=== PATIENT | male | born 1990 | race Hispanic/Latino ===

== ENCOUNTER 2018-02-04 14:56 | Emergency (ER) | payer MEDICAID ==
--- NOTE | 2018-02-04 15:06 | ED PDOC ---
Arrival/HPI - General Historian: Patient - History of Present Illness Narrative History of Present Illness (Text): 02/04/18 15:06 27 y/o male, no significant pmh, nkda, c/o left ear pain x 3 days. Pt. stated that he has left ear pain, associated with decrease hearing, no headache, no dizziness, admits discharge, no neck pain or night sweat, no rash, no numbness or tingling, no other medical or psychological complaints. <Henry Dietrich - Last Filed: 02/04/18 15:44> <Fernando Lee - Last Filed: 02/04/18 16:03> - General Time Seen by Provider: 02/04/18 15:05 Past Medical History - Provider Review Nursing Documentation Reviewed: Yes <Henry Dietrich - Last Filed: 02/04/18 15:44> Family/Social History - Physician Review Nursing Documentation Reviewed: Yes Family/Social History: Unknown Family HX <Henry Dietrich - Last Filed: 02/04/18 15:44> Allergies/Home Meds <Henry Dietrich - Last Filed: 02/04/18 15:44> <Fernando Lee - Last Filed: 02/04/18 16:03> Allergies/Adverse Reactions: Allergies clarithromycin [From Biaxin] Allergy (Verified 02/04/18 15:16) ANAPHYLAXIS Review of Systems - Review of Systems Constitutional: absent: Fatigue, Fevers Eyes: absent: Vision Changes ENT: Other (ear pain). absent: Hearing Changes Respiratory: absent: SOB, Cough Cardiovascular: absent: Chest Pain Gastrointestinal: absent: Abdominal Pain, Nausea, Vomiting Genitourinary Male: absent: Dysuria, Frequency Musculoskeletal: absent: Arthralgias, Back Pain Skin: absent: Rash, Pruritis Psychiatric: absent: Anxiety, Depression, Suicidal Ideation <Henry Dietrich - Last Filed: 02/04/18 15:44> Physical Exam Vital Signs Reviewed: Yes Temperature: Afebrile Blood Pressure: Hypertensive Pulse: Regular Respiratory Rate: Normal Appearance: Positive for: Well-Appearing, Non-Toxic, Comfortable Pain Distress: Moderate Mental Status: Positive for: Alert and Oriented X 3 - Systems Exam Head: Present: Atraumatic, Normocephalic Pupils: Present: PERRL Extroacular Muscles: Present: EOMI Conjunctiva: Present: Normal Ears: Present: Other (Ears: Lt. TM is erythematous with lt. auditory canal moderately swollen with erythematous, rt. TM pilar color and intact, rt. auditory canal non-erythematous, no mastoid tenderness, hearing grossly intact. ) Mouth: Present: Moist Mucous Membranes Neck: Present: Normal Range of Motion Respiratory/Chest: Present: Clear to Auscultation, Good Air Exchange. No: Respiratory Distress, Accessory Muscle Use Cardiovascular: Present: Regular Rate and Rhythm, Normal S1, S2. No: Murmurs Abdomen: No: Tenderness, Distention, Peritoneal Signs Back: Present: Normal Inspection Upper Extremity: Present: Normal Inspection. No: Cyanosis, Edema Lower Extremity: Present: Normal Inspection. No: Edema Neurological: Present: GCS=15, CN II-XII Intact, Speech Normal Skin: Present: Warm, Dry, Normal Color. No: Rashes Psychiatric: Present: Alert, Oriented x 3, Normal Insight, Normal Concentration <Henry Dietrich - Last Filed: 02/04/18 15:44> Vital Signs Temp Pulse Resp BP Pulse Ox 02/04/18 15:17 98.5 F 88 18 154/82 H 98 <Fernando Lee - Last Filed: 02/04/18 16:03> Medical Decision Making ED Course and Treatment: 02/04/18 15:50 -augmentin/ciprodex/motrin -Discharge home with ciprodex/augmentin/motrin, keep the left ear dry and clean, follow up with your own pmd and ENT within 2 days, return to the ER for any new or worsening signs or symptoms. <Henry Dietrich - Last Filed: 02/04/18 15:44> - Medication Orders Current Medication Orders: Discontinued Medications Amoxicillin/Clavulanate Potassium (Augmentin 875 Mg-125 Mg Tab) 1 tab PO STAT STA; Protocol Stop: 02/04/18 15:43 Ciprofloxacin/Dexamethasone (Ciprodex Otic) 4 drop STAT STA Stop: 02/04/18 15:43 Ibuprofen (Motrin Tab) 600 mg PO STAT STA Stop: 02/04/18 15:44 <Fernando Lee - Last Filed: 02/04/18 16:03> - PA / SAILING OFFICER / Resident Statement /DO has reviewed & agrees with the documentation as recorded. <Henry Dietrich - Last Filed: 02/04/18 15:44> - PA / SAILING OFFICER / Resident Statement / has reviewed & agrees with the documentation as recorded. <Fernando Lee - Last Filed: 02/04/18 16:03> Disposition/Present on Arrival - Present on Arrival Any Indicators Present on Arrival: No History of DVT/PE: No History of Uncontrolled Diabetes: No Urinary Catheter: No History of Decub. Ulcer: No - Disposition Have Diagnosis and Disposition been Completed?: Yes Disposition Time: 15:53 Patient Plan: Discharge <Henry Dietrich - Last Filed: 02/04/18 15:44> <Fernando Lee - Last Filed: 02/04/18 16:03> - Disposition Diagnosis: Otitis media, Otitis externa Disposition: HOME/ ROUTINE Condition: GOOD Additional Instructions: -Discharge home with ciprodex/augmentin/motrin, keep the left ear dry and clean, follow up with your own pmd and ENT within 2 days, return to the ER for any new or worsening signs or symptoms. Prescriptions: Amoxicillin/Clavulanate [Augmentin 875 MG-125 MG] 1 tab PO BID #20 tab Ciprofloxacin/Dexamethasone [Ciprodex 0.3%-0.1% 7.5 Ml] 4 drop OT BID #1 bottle RX: Ibuprofen [Motrin Tab] 600 mg PO QID PRN #30 tab PRN Reason: Other Referrals: PCP,NO [Primary Care Provider] - Follow up with primary Venu Méndez DO [Staff Provider] - Follow up with primary [facility] [Outside] - Follow up with primary Forms: WORK NOTE
[2018-02-04 15:22] VITALS: BP 154/82; PULSE 88; RESP 18; TEMP 98.5; O2SAT 98
[2018-02-04] MEDS ORDERED: Amoxicillin-Clav 875-125 mg Tab PO STA (15:42)
[2018-02-04] MEDS ORDERED: Ciprofloxacin/Dexamethasone OTIC SUSP AS STA (15:42)
== END 2018-02-04 16:20 | disposition home or self-care (01) ==
LOC: ED 14:56
DX: H66.92 Otitis media, unspecified, left ear (principal); H60.92 Unspecified otitis externa, left ear

== ENCOUNTER 2018-06-02 12:23 | Emergency (ER) | payer MEDICAID ==
[2018-06-02 12:27] VITALS: RESP 18; TEMP 98; O2SAT 96; BMI 47.0
--- NOTE | 2018-06-02 13:21 | ED PDOC ---
Arrival/HPI - General Chief Complaint: Abdominal Pain Time Seen by Provider: 06/02/18 12:52 Historian: Patient - History of Present Illness Narrative History of Present Illness (Text): 06/02/18 13:05 27 year old male, whose past medical history includes asthma and cholecystectomy presents to the emergency department complaining of abdominal pain, since yesterday. Patient describes the pain as a cramping and "tearing" feeling. He believes he ate something that didn't sit well in his stomach last night. He reports associated brown, watery diarrhea. Patient denies fevers, chills, headache, dizziness, chest pain, shortness of breath, dyspnea on exertion, cough, nausea, vomiting, back pain, neck pain, or any other complaint. Time/Duration: 24 hours Symptom Onset: Gradual Symptom Course: Unchanged Activities at Onset: Light Context: Home Past Medical History - Provider Review Nursing Documentation Reviewed: Yes - Infectious Disease Hx of Infectious Diseases: None - Cardiac Hx Cardiac Disorders: No - Pulmonary Hx Asthma: Yes - Neurological Hx Neurological Disorder: No - Renal Hx Renal Disorder: No - Gastrointestinal Hx Gastrointestinal Disorders: No - Psychiatric Hx Psychophysiologic Disorder: No Hx Substance Use: No - Surgical History Hx Cholecystectomy: Yes Other/Comment: b/l ear tubes - Anesthesia Hx Anesthesia Reactions: No Family/Social History - Physician Review Nursing Documentation Reviewed: Yes Family/Social History: No Known Family HX Smoking Status: Never Smoked Hx Alcohol Use: Yes Hx Substance Use: No Allergies/Home Meds Allergies/Adverse Reactions: Allergies clarithromycin [From Biaxin] Allergy (Verified 02/04/18 15:16) ANAPHYLAXIS strawberry Allergy (Verified 06/02/18 13:05) RASH Review of Systems - Physician Review All systems were reviewed & negative as marked: Yes - Review of Systems Constitutional: absent: Fevers Eyes: absent: Vision Changes Respiratory: absent: SOB, Cough Cardiovascular: absent: Chest Pain Gastrointestinal: Abdominal Pain, Diarrhea. absent: Nausea, Vomiting Genitourinary Male: absent: Dysuria, Frequency Musculoskeletal: absent: Back Pain, Neck Pain Skin: absent: Rash Neurological: absent: Headache, Dizziness Physical Exam Vital Signs Reviewed: Yes Vital Signs Temp Pulse Resp BP Pulse Ox 06/02/18 12:25 98.0 F 112 H 18 122/76 96 Temperature: Afebrile Blood Pressure: Normal Pulse: Tachycardic Respiratory Rate: Normal Appearance: Positive for: Well-Appearing, Non-Toxic, Comfortable Pain Distress: None Mental Status: Positive for: Alert and Oriented X 3 - Systems Exam Head: Present: Atraumatic, Normocephalic Pupils: Present: PERRL Extroacular Muscles: Present: EOMI Conjunctiva: Present: Normal Mouth: Present: Moist Mucous Membranes Neck: Present: Normal Range of Motion Respiratory/Chest: Present: Clear to Auscultation, Good Air Exchange. No: Respiratory Distress, Accessory Muscle Use Cardiovascular: Present: Regular Rate and Rhythm, Normal S1, S2. No: Murmurs Abdomen: No: Tenderness, Distention, Peritoneal Signs Back: Present: Normal Inspection Upper Extremity: Present: Normal Inspection. No: Cyanosis, Edema Lower Extremity: Present: Normal Inspection. No: Edema Neurological: Present: GCS=15, CN II-XII Intact, Speech Normal Skin: Present: Warm, Dry, Normal Color. No: Rashes Psychiatric: Present: Alert, Oriented x 3, Normal Insight, Normal Concentration Medical Decision Making ED Course and Treatment: 06/02/18 13:05 Impression: 27 year old male who presents to the emergency department complaining of abdominal pain. Differential Diagnosis included but are not limited to: gastroenteritis Plan: -- Pepcid -- Tylenol -- Discharge home with f/u Prior Visits: Notes and results from previous visits were reviewed. - Medication Orders Current Medication Orders: Discontinued Medications Acetaminophen (Tylenol 325mg Tab) 650 mg PO STAT STA Stop: 06/02/18 13:14 Famotidine (Pepcid) 20 mg PO STAT STA Stop: 06/02/18 13:14 - Scribe Statement The provider has reviewed the documentation as recorded by the Abdullahi Jones Provider Scribe Attestation: All medical record entries made by the Scribewelina were at my direction and personally dictated by me. I have reviewed the chart and agree that the record accurately reflects my personal performance of the history, physical exam, medical decision making, and the department course for this patient. I have also personally directed, reviewed, and agree with the discharge instructions and disposition. Disposition/Present on Arrival - Present on Arrival Any Indicators Present on Arrival: No History of DVT/PE: No History of Uncontrolled Diabetes: No Urinary Catheter: No History of Decub. Ulcer: No History Surgical Site Infection Following: None - Disposition Have Diagnosis and Disposition been Completed?: Yes Diagnosis: Gastroenteritis Disposition: HOME/ ROUTINE Disposition Time: 13:10 Patient Plan: Discharge Condition: IMPROVED Discharge Instructions (ExitCare): Diarrhea in Adolescents and Adults Additional Instructions: SAMANTHA LEWIS, thank you for letting us take care of you today. Your provider was William Butler DO and you were treated for Gastroenteritis. The emergency medical care you received today was directed at your acute symptoms. If you were prescribed any medication, please fill it and take as directed. It may take several days for your symptoms to resolve. Return to the Emergency Department if your symptoms worsen, do not improve, or if you have any other problems. Please contact your doctor or call one of the physicians/clinics you have been referred to that are listed on the Patient Visit Information form that is included in your discharge packet. Bring any paperwork you were given at discharge with you along with any medications you are taking to your follow up visit. Our treatment cannot replace ongoing medical care by a primary care provider outside of the emergency department. Thank you for allowing the [email or web address] team to be part of your care today. If you had an X-Ray or CT scan: A Radiologist will review the ED reading if any change in treatment is needed we will contact you. If you had a blood, urine, or wound culture: It will take several days for the results, if any change in treatment is needed we will contact you. If you had an STI test: It will take 48 hours for the results. Please call after 1 week if you have not heard back. Prescriptions: Ranitidine HCl [Zantac] 150 mg PO BID PRN #30 tablet PRN Reason: Pain, Mild (1-3) Referrals: [facility] Tessa Req, [Non-Staff] - Follow up with primary Forms: Red Mapache (Emirati), WORK NOTE
[2018-06-02 14:21] VITALS: BP 125/73; PULSE 88
== END 2018-06-02 14:33 | disposition home or self-care (01) ==
LOC: ED 12:23
DX: K52.9 Noninfective gastroenteritis and colitis, unspecified (principal)